=== PATIENT | male | born 1970 | race Caucasian/White ===

== ENCOUNTER 2025-04-26 00:52 | Day surgery (SDC) | payer OTHER, SELFPAY ==
[2025-04-17 14:13] VITALS: BMI 25.1
[2025-04-26 10:29] VITALS: BP 122/80; PULSE 86; RESP 16; TEMP 36.8; O2SAT 99
[2025-04-26] MEDS: LACTATED RINGERS 1,000 ML 150 ML IV CONT (10:40)
--- NOTE | 2025-04-26 10:44 | WPDANESEPPF ---
Anes - Initial Pre Proc Eval Procedure: Operation Date: 04/26/25 11:30 Proposed Procedures p Diagnostic Colonoscopy - Justo Champion MD Date/Time: 04/26/25 10:44 Surgeon: Justo Champion MD Pre Op Diagnosis: Constipation, unspecified Patient Data Age: 54 Gender: M Height: 1.73 m Weight: 69.4 kg Last Vital Signs Temp 36.8 C 04/26/25 10:29 Pulse 86 04/26/25 10:29 Resp 16 04/26/25 10:29 BP 122/80 04/26/25 10:29 Pulse Ox 99 04/26/25 10:29 O2 Del Method Room Air 04/26/25 10:29 Allergies Allergy/AdvReac Type Severity Reaction Status Date / Time No Known Allergies Allergy Verified 04/26/25 10:27 Home Medications ?Medication ?Instructions ?Recorded ?Confirmed ?Type atorvastatin 20 mg tablet (Lipitor) 20 mg PO DAILY 03/30/25 04/26/25 History folic acid 1 mg tablet 1 mg PO DAILY 03/30/25 04/26/25 History phenytoin sodium extended 100 mg 300 mg PO HS 04/17/25 04/26/25 History capsule Patient hx anesthesia problems: none Family hx anesthesia problems: none Results Review: All pre-operative results and documents have been reviewed as part of the pre-operative evaluation. [facility] Past Medical History Medical History (Updated 04/26/25 @ 10:44 by Raghav Bledsoe MD) Seizure disorder Constipation Rectal bleeding Social History Social History Smoking packs per day: 2 Smoking cigarettes per day: 40.0 Years smoked: 40 Smoking pack-years: 80.00 Smoking status: Former smoker Tobacco type: cigarettes Alcohol intake: never Alcohol use details: drinks wine occasionally Substance use: never Substance use type: does not use Lack of Transportation: No Lack of Food: Never True Current Housing: I Have Housing Concerned About Future Housing: No Difficulty Paying Gas/Electric Bills: No Difficulty Paying for Meds: No Currently Unemployed: No Education: Decline to Answer Difficulty w/ Childcare or Family Care: Decline to Answer Living arrangements: with family Spiritual care concerns: No Anes - Eval Final PreProcedure Day of Procedure 04/26/25 10:44 Patient weight: normal Heart: regular rate and rhythm Lungs: clear to auscultation Airway: Mallampati scale class II Neurological: other (non verbal) Last oral intake: >/= 8 hours ASA classification: III Emergent: no Anesthetic plan: proceed Anesthesia type and monitoring: general GIVS and standard monitoring Results Review: All pre-operative results and documents have been reviewed as part of the pre-operative evaluation. Informed Consent: The patient's anesthetic plan and its attendant risks and benefits were discussed with the patient/family/POA. Questions were solicited and answers provided to the satisfaction of the patient/family/POA.
--- NOTE | 2025-04-26 11:58 | PM.IMHP2 ---
H&P: HPI History of Present Illness Date/Time: 04/26/25 11:58 Chief Complaint: Rectal bleeding Narrative: The patient has been complaining of intermittent rectal bleeding for the past few months, sometimes red wine color. He is referred for colonoscopy. Review of Systems Review of Systems: All systems reviewed & are unremarkable except as noted in HPI and below PMFSH Past Medical History Medical History (Updated 04/26/25 @ 10:44 by Raghav Bledsoe MD) Seizure disorder Constipation Rectal bleeding Social History Social History Smoking packs per day: 2 Smoking cigarettes per day: 40.0 Years smoked: 40 Smoking pack-years: 80.00 Smoking status: Former smoker Tobacco type: cigarettes Alcohol intake: never Alcohol use details: drinks wine occasionally Substance use: never Substance use type: does not use Lack of Transportation: No Lack of Food: Never True Current Housing: I Have Housing Concerned About Future Housing: No Difficulty Paying Gas/Electric Bills: No Difficulty Paying for Meds: No Currently Unemployed: No Education: Decline to Answer Difficulty w/ Childcare or Family Care: Decline to Answer Living arrangements: with family Spiritual care concerns: No Meds Home Medications and Allergies Home Medications ?Medication ?Instructions ?Recorded ?Confirmed ?Type atorvastatin 20 mg tablet (Lipitor) 20 mg PO DAILY 03/30/25 04/26/25 History folic acid 1 mg tablet 1 mg PO DAILY 03/30/25 04/26/25 History phenytoin sodium extended 100 mg 300 mg PO HS 04/17/25 04/26/25 History capsule Allergies Allergy/AdvReac Type Severity Reaction Status Date / Time No Known Allergies Allergy Verified 04/26/25 10:27 Vital Signs Vital Signs - 24 hr 04/26/25 10:29 Temperature 98.3 F Pulse Rate 86 Respiratory Rate 16 Blood Pressure 122/80 Pulse Oximetry 99 Oxygen Delivery Room Air Exam Const: General: cooperative and healthy appearing Resp: Effort & Inspection: normal respiratory effort and able to speak in complete sentences Auscultation: clear to auscultation bilaterally Cardio: Rate: regular rate Rhythm: regular rhythm GI: Inspection: normal to inspection GI Palp: No No hepatosplenomegaly present Auscultation: normal bowel sounds Rectal Exam: deferred Skin: General skin exam: normal color Psych: Appearance: grossly normal Mental Status: mental status grossly normal Assessment and Plan Assessment and plan (1) Rectal bleeding: Code(s): K62.5 - Hemorrhage of anus and rectum Status: Acute Assessment and Plan: The patient is deemed a good candidate for the procedure. Consent signed. Will proceed. Prior Studies I have reviewed the following patient records and this information was taken into consideration when formulating the assessment and plan.: previous labs, previous ER visits, previous hospitalizations and previous clinic visits
--- NOTE | 2025-04-26 12:30 | S_PTH ---
PATIENT: Prashanth Pierre Jr. LOC: [facility] U#:[id number] AGE/SX: 54/M ROOM: RE04/26/[address]: Justo Champion MD : 1970 BED: DIS: 04/26/2025 SPEC #: [id number] RECD: 04/26/25 13:28 STATUS: HARIS REQ #: [id number] LESVIA: 04/26/25 12:[address]: Justo Champion DEPT: [facility] Surgical RECD BY: Danay Black MLT, ([facility]) ENTERED: 04/26/25 13:28 SP TYPE: Surgical OTHR DR: Jordi,Peter Bailey Tissues: A - Colon Polypectomy Procedures: Hematoxylin and Eosin Stain Gross and Microscopic Level 4
[2025-04-26 12:32] VITALS: BP 106/72; PULSE 72; RESP 16; O2SAT 100
[2025-04-26 12:42] VITALS: BP 112/73; PULSE 70; RESP 15; O2SAT 100
[2025-04-26 12:52] VITALS: BP 118/78; PULSE 70; RESP 16; O2SAT 100
== END 2025-04-26 13:05 | disposition home or self-care (01) ==
PROVIDERS: PCP Internal Medicine; Referring Provider Nurse Practitioner Family; Visit Provider Internal Medicine Gastroenterology
PROC: 0DJD8ZZ Inspection of Lower Intestinal Tract, Via Natural or Artificial Opening Endoscopic (ICD-10-PCS; CPT 45378; principal; 2025-04-26 11:30)
DX: K62.5 Hemorrhage of anus and rectum (principal); D12.3 Benign neoplasm of transverse colon; K64.8 Other hemorrhoids; Z87.891 Personal history of nicotine dependence
CPT/HCPCS: 45385; 88305; J2704; J7120